=== PATIENT | male | born 1940 | race Caucasian/White ===

== ENCOUNTER 2021-12-14 10:50 | Observation (INO) | payer MEDICARE ==
[~2021-12-14] VITALS: Ht 177.8 cm; Wt 81.6 kg
[~2021-12-14 10:50] MED LIST: CARVEDILOL12.5 MG PO; CRANBERRY PO; FISH OIL PO; GRAPE SEED OIL PO; LEVOTHYROXINE PO; SIMVASTATIN20 MG PO
[2021-12-14] MEDS ORDERED: METOPROLOL TARTRATE INJ 1 MG/ML VIAL IV ONE (11:15)
[2021-12-14] MEDS ORDERED: SODIUM CHLORIDE 0.9% 500ML 500 ML IV ONE (11:15)
[2021-12-14] MEDS ORDERED: SODIUM CHLORIDE 0.9% 500ML 500 ML ONE (11:24)
[2021-12-14] MEDS ORDERED: METOPROLOL TARTRATE INJ 1 MG/ML VIAL ONE (11:24)
[2021-12-14 11:47] LABS: BASOPHILS % 0.2 % (0.0-1.0); EOSINOPHILS # (AUTO) 0.1 (0.0-0.4); EOSINOPHILS % 1.8 % (0.0-6.0); HEMATOCRIT 42.9 % (38.2-49.6); HEMOGLOBIN 14.1 g/dL (14.0-18.0); LYMPHOCYTES # (AUTO) 2.1 (1.0-3.2); LYMPHOCYTES % 38.6 % (18.0-39.1); MEAN CORPUSCULAR HEMOGLOBIN 30.9 pg (28-32); MEAN CORPUSCULAR HGB CONC 32.9 g/dL (31-35); MEAN CORPUSCULAR VOLUME 93.9 fL (81-99); MONOCYTES # (AUTO) 0.6 (0.2-0.8); MONOCYTES % 10.7 % (4.4-11.3); NEUTROPHILS # (AUTO) 2.7 (2.1-6.9); NEUTROPHILS % 48.5 % (38.7-80.0); PLATELET COUNT 152 x10e3/uL (140-360); RED BLOOD COUNT 4.57 x10e6/uL (4.3-5.7); RED CELL DISTRIBUTION WIDTH 14.3 % (11.7-14.4)
[2021-12-14 11:59] LABS: INR 1.39; PROTHROMBIN TIME 18.2 seconds (11.9-14.5)
[2021-12-14 12:00] LABS: PARTIAL THROMBOPLASTIN TIME 44.1 seconds (23.8-35.5)
[2021-12-14 12:10] LABS: ALANINE AMINOTRANSFERASE 14 IU/L (0-55); ALBUMIN 3.8 g/dL (3.5-5.0); ALBUMIN/GLOBULIN RATIO 1.1 (0.8-2.0); ALKALINE PHOSPHATASE 96 IU/L (40-150); ANION GAP 13.9 mmol/L (8-16); BLOOD UREA NITROGEN 17 mg/dL (7-26); BUN/CREATININE RATIO 13 (6-25); CALCIUM 9.3 mg/dL (8.4-10.2); CARBON DIOXIDE 24 mmol/L (22-29); CHLORIDE 107 mmol/L (98-107); CREATINE KINASE 76 IU/L (30-200); CREATININE, SERUM 1.34 mg/dL (0.72-1.25); GLUCOSE 157 mg/dL (74-118); MAGNESIUM 1.9 MG/DL (1.3-2.1); POTASSIUM 3.9 mmol/L (3.5-5.1); SODIUM 141 mmol/L (136-145)
[2021-12-14 13:50] VITALS: BP 148/71
[2021-12-14] MEDS ORDERED: ALPRAZOLAM0.25 MG PO (15:50)
[2021-12-14] MEDS ORDERED: COREG6.25 MG PO ×2 (15:50)
[2021-12-14] MEDS ORDERED: LEVOTHYROXINE75 MCG PO (15:50)
[2021-12-14] MEDS ORDERED: WARFARIN SODIU2.5 MG PO (15:50)
[2021-12-14] MEDS ORDERED: ATORVASTATIN CA20 MG PO (15:50)
[2021-12-14] MEDS ORDERED: LASIX20 MG PO (15:50)
[2021-12-14] MEDS ORDERED: WARFARIN SODIUM5 MG PO (15:50)
[2021-12-14 16:00] VITALS: BP 137/76
[2021-12-14] MEDS ORDERED: METOPROLOL SUCCINATE 50 MG TAB XL PO SCH (21:00)
== END 2021-12-14 17:27 | disposition home or self-care (01) ==
LOC: ER 10:55 → ERHOLD 12:20 → MED/SURG3 13:47
PROVIDERS: ADMIT Internal Medicine; ATTEND Internal Medicine
DX: I48.0 Paroxysmal atrial fibrillation (principal); Z79.01 Long term (current) use of anticoagulants; I25.10 Atherosclerotic heart disease of native coronary artery without angina pectoris; Z95.1 Presence of aortocoronary bypass graft; I12.9 Hypertensive chronic kidney disease with stage 1 through stage 4 chronic kidney disease, or unspecified chronic kidney disease; N18.30 Chronic kidney disease, stage 3 unspecified; E78.5 Hyperlipidemia, unspecified; E03.9 Hypothyroidism, unspecified; Z20.822 Contact with and (suspected) exposure to COVID-19; Z79.52 Long term (current) use of systemic steroids; Z79.899 Other long term (current) drug therapy
CPT/HCPCS: 0223U; 36415; 71045; 80053; 82550; 82553; 83735; 83880; 84443; 84484; 85025; 85610; 85730; 93005; 94799; G0378; J7040

== ENCOUNTER 2022-03-19 06:48 | Observation (INO) | payer MEDICARE ==
[~2022-03-19] VITALS: Ht 177.8 cm; Wt 81.6 kg
[~2022-03-19 06:48] MED LIST changes: +ALPRAZOLAM0.25 MG PO; +ATORVASTATIN CA20 MG PO; +COREG6.25 MG PO; +LASIX20 MG PO; +LEVOTHYROXINE75 MCG PO; +WARFARIN SODIU2.5 MG PO; +WARFARIN SODIUM5 MG PO
[2022-03-19 07:28] LABS: BASOPHILS % 0.3 % (0.0-1.0); EOSINOPHILS # (AUTO) 0.2 (0.0-0.4); EOSINOPHILS % 2.6 % (0.0-6.0); HEMOGLOBIN 13.8 g/dL (14.0-18.0); LYMPHOCYTES # (AUTO) 1.7 (1.0-3.2); LYMPHOCYTES % 25.5 % (18.0-39.1); MEAN CORPUSCULAR HEMOGLOBIN 31.2 pg (28-32); MEAN CORPUSCULAR HGB CONC 32.1 g/dL (31-35); MEAN CORPUSCULAR VOLUME 97.1 fL (81-99); MONOCYTES # (AUTO) 0.5 (0.2-0.8); MONOCYTES % 6.9 % (4.4-11.3); NEUTROPHILS # (AUTO) 4.3 (2.1-6.9); NEUTROPHILS % 64.4 % (38.7-80.0); PLATELET COUNT 135 x10e3/uL (140-360); RED BLOOD COUNT 4.43 x10e6/uL (4.3-5.7); RED CELL DISTRIBUTION WIDTH 14.5 % (11.7-14.4)
[2022-03-19] MEDS ORDERED: CARVEDILOL 3.125 MG TAB PO ONE (07:30)
[2022-03-19 07:39] LABS: INR 1.12; PROTHROMBIN TIME 14.6 seconds (11.9-14.5)
[2022-03-19 07:40] LABS: PARTIAL THROMBOPLASTIN TIME 41.2 seconds (23.8-35.5)
[2022-03-19 07:47] LABS: ALANINE AMINOTRANSFERASE 12 IU/L (0-55); ALBUMIN 3.4 g/dL (3.5-5.0); ALBUMIN/GLOBULIN RATIO 0.9 (0.8-2.0); ALKALINE PHOSPHATASE 74 IU/L (40-150); ANION GAP 15.1 mmol/L (8-16); BLOOD UREA NITROGEN 21 mg/dL (7-26); BUN/CREATININE RATIO 15 (6-25); CALCIUM 9.2 mg/dL (8.4-10.2); CARBON DIOXIDE 22 mmol/L (22-29); CHLORIDE 105 mmol/L (98-107); CREATINE KINASE 82 IU/L (30-200); CREATININE, SERUM 1.41 mg/dL (0.72-1.25); GLUCOSE 177 mg/dL (74-118); MAGNESIUM 1.8 MG/DL (1.3-2.1); POTASSIUM 4.1 mmol/L (3.5-5.1); SODIUM 138 mmol/L (136-145)
[2022-03-19] MEDS ORDERED: NITROGLYCERIN 0.4 MG SUBL SL PRN (08:00)
[2022-03-19] MEDS ORDERED: Morphine 2mg Syringe 2 MG/ML SYR IV PRN (08:00)
[2022-03-19] MEDS ORDERED: FAMOTIDINE 20 MG/2 ML VIAL IV SCH (08:00)
[2022-03-19] MEDS ORDERED: ONDANSETRON HCL INJ 2MG/ML 2ML 2 MG/ML VIAL IV PRN (08:00)
[2022-03-19 09:51] VITALS: BP 122/68
[2022-03-19] MEDS ORDERED: ACETAMINOPHEN 325 MG TAB PO PRN (10:00)
[2022-03-19] MEDS ORDERED: ALPRAZOLAM 0.25 MG TAB PO PRN (10:00)
[2022-03-19 11:40] VITALS: BP 124/73
[2022-03-19 12:28] LABS: FREE THYROXINE INDEX 3.2815 (1.4-3.8); THYROID STIMULATING HORMONE 0.343 uIU/mL (0.350-4.940)
[2022-03-19] MEDS ORDERED: AMIODARONE HCL 200 MG TAB PO SCH ×2 (15:00→17:00)
[2022-03-19] MEDS ORDERED: METOPROLOL SUCCINATE 50 MG TAB XL PO SCH ×2 (15:00→17:00)
[2022-03-19 15:33] VITALS: BP 134/67
[2022-03-19 16:12] LABS: CREATINE KINASE MB 2.5 ng/mL (0-5.0)
[2022-03-19] MEDS ORDERED: TOPROL XL50 MG PO (16:27)
[2022-03-19] MEDS ORDERED: AMIODARONE HCL200 MG PO (16:27)
[2022-03-19] MEDS ORDERED: CARVEDILOL 3.125 MG TAB PO SCH (17:00)
[2022-03-19] MEDS ORDERED: ATORVASTATIN 20 MG TAB PO SCH (21:00)
[2022-03-20] MEDS ORDERED: LEVOTHYROXINE SODIUM 75 MCG TAB PO SCH (05:00)
[2022-03-20] MEDS ORDERED: FUROSEMIDE 20 MG TAB PO SCH (09:00)
== END 2022-03-19 17:55 | disposition home or self-care (01) ==
LOC: ER 06:52 → ERHOLD 07:50 → MED/SURG 08:34
PROVIDERS: ADMIT Internal Medicine; ATTEND Internal Medicine
DX: I48.0 Paroxysmal atrial fibrillation (principal); N17.9 Acute kidney failure, unspecified; I25.10 Atherosclerotic heart disease of native coronary artery without angina pectoris; N40.1 Benign prostatic hyperplasia with lower urinary tract symptoms; R33.8 Other retention of urine; E78.00 Pure hypercholesterolemia, unspecified; E03.9 Hypothyroidism, unspecified; E78.5 Hyperlipidemia, unspecified; Z95.1 Presence of aortocoronary bypass graft; Z79.01 Long term (current) use of anticoagulants; Z79.899 Other long term (current) drug therapy; Z20.822 Contact with and (suspected) exposure to COVID-19
CPT/HCPCS: 0223U; 36415; 71045; 80053; 82550; 82553; 83735; 83880; 84436; 84443; 84479; 84484; 85025; 85610; 85730; 93005; 99284; G0378